=== PATIENT | male | born 1995 | race African-American/Black ===

== ENCOUNTER 2020-10-16 21:53 | Inpatient (IN) | payer SELFPAY ==
--- NOTE | ~2020-10-16 | CT_ITS ---
EXAMINATION: CT abdomen pelvis w con DATE: 10/17/2020 05:24 INDICATION: Abdominal pain. TECHNIQUE: Computed tomography (CT) of the abdomen and pelvis was performed with 100 mL Omnipaque 350 intravenous contrast. Automated exposure control and iterative reconstruction technique were employe d. The dose-length product was 617.64 mGy-cm. COMPARISON: None. FINDINGS: The visualized portions of the lung bases are clear without pneumonia or pleural effusion. The heart size is normal. No pericardial effusion. In right hepatic lobe, there is a 1.9 cm mass with focus of peripheral hyperenhancement, likely a hemangioma. The gallbladder, spleen, pancreas, adrena l glands, and kidneys are normal. There are no dilated loops of bowel. The appendix is normal. There are no pathologically enlarged lymph nodes. There is no free intraperitoneal fluid. There is mild lum bar spondylosis. There is subcutaneous gas in left abdomen anteriorly, likely an injection site. IMPRESSION: 1. No specific etiology for the patient's symptoms. Reviewed, dictated and finalized at location A. ENT WEIGHER
--- NOTE | ~2020-10-16 | US_ITS ---
EXAMINATION: US retroperitoneal duplex ltd DATE: 10/18/2020 08:56 INDICATION: Hypertension. TECHNIQUE: Multiple grayscale, color Doppler, and pulsed Doppler images of the kidneys and renal annalisa tulio were obtained. COMPARISON: CT abdomen and pelvis 10/17/2020 FINDINGS: The aorta peak systolic velocity is 204 cm/s. The right renal artery peak systolic velocity is 111 cm /s in the proximal segment, 113 cm/s in the mid segment, and 70 cm/s in the distal segment. The left renal artery peak systolic velocity is 125 cm/s in the proximal segment, 118 cm/s in the mid segment, and 89 cm/s in the distal segment. IMPRESSION: 1. No Doppler evidence of renal artery stenosis. The CT similarly shows no significant renal artery stenosis. Reviewed, dictated and finalized at location A. IMPRESSION: 1. No Doppler evidence of renal artery stenosis. The CT similarly shows no sig nificant renal artery stenosis.
--- NOTE | ~2020-10-16 | US_ITS ---
EXAMINATION: US venous doppler [facility] DATE: 10/18/2020 08:54 INDICATION: Lower limb edema. TECHNIQUE: Grayscale ultrasound images without and with compression and Doppler ultrasound images of the bilateral lower extremity veins were obtained. COMPARISON: None. FINDINGS: The visualized portions of right common femoral vein, profunda (deep) femoral vein, femoral vein, pop liteal vein, peroneal veins, posterior tibial veins, and greater saphenous vein outflow are patent. The visualized portions of left common femoral vein, profunda femoral vein, femoral vein, popliteal v ein, peroneal veins, posterior tibial veins, and greater saphenous vein outflow are patent. IMPRESSION: 1. No deep venous thrombosis. Reviewed, dictated and finalized at location A.
--- NOTE | ~2020-10-16 | CT_ITS ---
EXAMINATION: CTA chest PE protocol DATE: 10/16/2020 23:26 INDICATION: Elevated troponin. Chest pain. TECHNIQUE: Computed tomography (CT) of the chest was performed with 100 cc Omnipaque 350 intravenous contrast. The dose-length product was 535.00 mGy-cm. Automated exposure control and iterative reconst ruction technique were employed. COMPARISON: None FINDINGS: Mild cardiomegaly. There are filling defects in left upper lobe segmental pulmonary arterie s, consistent with pulmonary embolism. There is anterior mediastinal soft tissue. No Evidence for aor tic aneurysm or dissection. There is gynecomastia. Upper abdomen is unremarkable. There are groundgla ss opacities of the left upper lobe, consistent with pneumonia. No endobronchial lesions. IMPRESSION: 1. Pulmonary embolism involving segmental pulmonary arteries of the right upper lobe. 2: Left upper lobe pneumonia. 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 Other etiologies such as lymphoma or less favored. 4: Cardiomegaly with left ventricular hypertrophy. Reviewed, dictated and finalized at location A. NISTRATIVE LIAISON IMPRESSION: 1. Pulmonary embolism involving segmental pulmonary arteries of the right upper lobe. 2: Left upper lobe pneumonia. 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 Oth er etiologies such as lymphoma or less favored. 4: Cardiomegaly with left ventricular hypertrophy.
--- NOTE | ~2020-10-16 | MR_ITS ---
EXAMINATION: MR brain/brain stem wo/w con DATE: 10/18/2020 09:35 INDICATION: Headache. TECHNIQUE: Magnetic resonance imaging (MRI) of the brain and brainstem was performed without and with 15 mL MultiHance intravenous contrast. Sequences included sagittal and axial T1-weighted FSE, axial diffusion-weighted FS EPI, axial T2*-weighted GRE, axial T2-weighted FLAIR Propeller, and axial T2-we ighted Propeller. Postcontrast sequences included axial and coronal T1-weighted FSE. Apparent diffusi on coefficient (ADC) maps were created. COMPARISON: Head CT 10/17/2020 FINDINGS: There is a mild distribution of increased T2-weighted signal intensity in the cerebral whit e matter with a posterior predominance. There is no intracranial hemorrhage, acute infarction, or abn ormal intracranial mass lesion. The ventricles are normal in size. The paranasal sinuses are clear. T he orbits are normal. The mastoid air cells are normal. IMPRESSION: 1. Mild white matter disease with a posterior predominance, likely acute hypertensive encephalopathy. Reviewed, dictated and finalized at location A. IMPRESSION: 1. Mild white matter disease with a posterior predominance, likely acute hypert ensive encephalopathy.
--- NOTE | ~2020-10-16 | XR_ITS ---
EXAMINATION: XR chest 1V portable 10/16/2020 22:20 INDICATION: Chest pain PROCEDURE: AP portable chest COMPARISON: No prior studies for comparison. FINDINGS: The lungs are clear. The cardiomediastinal silhouette is within normal limits. There are no pleural effusions. There is no pneumothorax suspected. IMPRESSION: 1: NO ACUTE CARDIOPULMONARY DISEASE. Reviewed, dictated and finalized at location A. AR PATHOLOGIST
--- NOTE | ~2020-10-16 | CT_ITS ---
EXAMINATION: CT BRAIN W/O DATE: 10/17/2020 18:21 INDICATION: Headache. Nausea and vomiting TECHNIQUE: Computed tomography (CT) of the head was performed without intravenous contrast. The dose- length product was 681.00 mGy-cm. The mA was adjusted according to patient size. Iterative reconstruc tion technique was employed. COMPARISON: No prior studies for comparison. FINDINGS: Normal brain parenchymal volume for age. Normal vieyra-white differentiation. No acute intrac ranial hemorrhage, infarction, mass or mass effect. Nonspecific periventricular white matter changes are noted. No ventriculomegaly or midline shift. Midline sagittal images demonstrate a normal corpus callosum, c raniovertebral junction and sella turcica. Basilar cisterns are patent. Paranasal sinuses and mastoids are pneumatized. No depressed skull fractures. IMPRESSION: 1. No acute intracranial abnormality. 2: Nonspecific periventricular white matter changes, atypical for age. Consider etiologies such as m ultiple sclerosis and progressive multifocal leukoencephalopathy. Consider follow-up MRI examination. Reviewed, dictated and finalized at location A. CTOR RADIO IMPRESSION: 1. No acute intracranial abnormality. 2: Nonspecific periventricular white matter changes, atypical for age. Conside r etiologies such as multiple sclerosis and progressive multifocal leukoencepha lopathy. Consider follow-up MRI examination.
[2020-10-16 21:57] VITALS: BP 200/131; PULSE 94; RESP 16; TEMP 36.3; O2SAT 99
--- NOTE | 2020-10-16 22:16 | ECG_ITS ---
Measurements Intervals [place] Rate: 72 P: 135 OK: 163 QRS: 32 QRSD: 86 T: 265 QT: 389 QTc: 426 Interpretive Statements ECTOPIC ATRIAL RHYTHM LEFT ATRIAL ENLARGEMENT ST ELEVATION IN ANTEROSEPTAL LEADS- PROBABLY EARLY REPOLARIZATION BORDERLINE ST-T WAVE ABNORMALITY- INF/HIGH LAT LEADS ABNORMAL ECG Electronically Signed On 10-17-2020 7:20:02 BELT MEASURER by Yan Call D.O.
[2020-10-16 22:26] LABS: Basophils Percent Auto 0.4 % (0.2-1.2); Eosinophils Percent Auto 0.3 % (0-4.4); Hematocrit 43.8 % (42.0-52.0); Hemoglobin 15.2 g/dL (14.0-18.0); Immature Granulocyte Absolute 0.03 K/mm3 (0.00-0.031); Immature Granulocyte Percent A 0.3 % (0-0.5); Lymphocytes Absolute Auto 1.23 K/mm3 (0.9-3.2); Mean Corpuscular HGB Conc 34.7 g/dl (32-36); Mean Corpuscular Hemoglobin 26.8 pg (26-34); Mean Corpuscular Volume 77.1 fl (80-100); Mean Platelet Volume 12.2 fl (7.4-10.4); Monocytes Absolute Auto 0.5 K/mm3 (0.1-0.6); Neutrophils Absolute Auto 8.4 K/mm3 (1.3-6.7); Platelet Count Result 251 k/mm3 (150-375); Red Blood Count 5.68 M/mm3 (4.6-6.20); Red Cell Distribution Width 13.9 % (11.5-14.5); White Blood Count 10.2 K/mm3 (4.5-10.0)
[2020-10-16] MEDS: PROCHLORPERAZINE EDISYLATE 10 MG/2 ML VIAL IV PUSH (22:33)
[2020-10-16] MEDS: SODIUM CHLORIDE 0.9% IV 1,000 ML 999 ML IV CONT ×2 (22:33)
[2020-10-16 22:38] VITALS: BP 207/141; PULSE 67; RESP 12; O2SAT 100
[2020-10-16 22:38] LABS: Alanine Aminotransferase 19 U/L (4-50); Albumin Level 4.7 g/dL (3.5-5.1); Alkaline Phosphatase 102 U/L (38-126); Anion Gap 8 mmol/L (8-16); Aspartate Amino Transferase 23 U/L (17-59); Bilirubin,Total 0.9 mg/dL (0.2-1.3); Blood Urea Nitrogen 15 mg/dL (9-20); Calcium 9.8 mg/dL (8.4-10.2); Carbon Dioxide 29 mmol/L (22-30); Chloride 104 mmol/L (98-107); Estimated CRCL calculation 84 ml/min; Estimated Glomerular Filt Rate > 60; Glucose 99 mg/dL (75-110); Lipase 170 U/L (23-300); Potassium 3.9 mmol/L (3.4-5.0); Sodium 141 mmol/L (137-145)
[2020-10-16 22:56] LABS: Troponin I 0.039 ng/mL (0.000-0.034)
[2020-10-16 23:11] LABS: Add Urine Microscopic? YES; Appearance Urine Clear (Clear); Bacteria Urine Trace /hpf; Bilirubin Urine Negative (Negative); Blood Urine Negative (Negative); Color Urine Yellow (Yellow); Glucose Urine UA 1+ mg/dL (Negative); Ketones Urine Trace mg/dL (Negative); Leukocyte Esterase Ur Negative LEU/UL (Negative); Mucus Urine Rare /lpf; Nitrate Urine Negative (Negative); Protein Urine 3+ mg/dL (Negative); RBC Urine 0-2 /hpf (0-2); Specific Grav Ur 1.015 (1.001-1.035); Urobilinogen Urine Negative mg/dL (<2.0)
[2020-10-16 23:28] VITALS: BP 204/124; PULSE 112; RESP 15; O2SAT 100
[2020-10-16 23:43] VITALS: PULSE 100; RESP 19; O2SAT 100
[2020-10-16 23:45] VITALS: PULSE 115; RESP 19; O2SAT 99
[2020-10-16 23:46] VITALS: BP 178/115; PULSE 98; RESP 15; TEMP 37; O2SAT 100
[2020-10-17] VITALS (33 sets, daily range): BP systolic 172–206; BP diastolic 100–130; PULSE 89–127; RESP 12–23; TEMP 36.6–37.1; O2SAT 98–100; BMI 25.9
--- NOTE | 2020-10-17 00:27 | ED.GENADULT ---
HPI - General Adult General Chief complaint: Nausea/Vomiting/Diarrhea Stated complaint: n/v Time Seen by Provider: 10/16/20 21:57 History of Present Illness HPI narrative: Patient is a 25-year-old gentleman who presents the emergency department with chief complaint of nausea and vomiting. The patient reports that he ate some [employer]aco [employer]asi this morning that did not quite taste right patient states that afterwards he started having nausea and vomiting the patient also reports that he has had headache some chest discomfort and some shortness of breath that developed afterwards as well. The patient denies fever denies Covid exposure states that his chest felt very uncomfortable while all this has been going on. 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 Patient reports no prior history of clotting disorder. Related Data Home Medications Medication Instructions Recorded Confirmed No Home Medications 10/16/20 Allergies Allergy/AdvReac Type Severity Reaction Status Date / Time No Known Allergies Allergy Verified 10/16/20 22:14 Review of Systems Review of Systems: Narrative: A 10 system review of systems was completed on the patient and is negative except for what is stated in the HPI. Nursing and ancillary documentation was reviewed. 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 HEAD: Normocephalic, atraumatic. EYES: PERRLA and EOMI. ENT: Nares clear, no rhinorrhea or epistaxis. Mucous membranes moist. NECK: Supple. CHEST: Clear to auscultation. No respiratory distress. HEART: Regular rate and rhythm. No murmur heard. Normal peripheral pulses. ABDOMEN: Soft, nontender, nondistended, normal active bowel sounds. EXTREMITIES: Normal range of motion. No edema. SKIN: Warm, dry, no rash. NEURO: No focal deficits. Alert and oriented x3. PSYCH: Normal mood and affect. 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 A COVID-19 test was sent the patient was given 1 mg/kg of Lovenox and the patient will be admitted to the hospitalist service blood cultures were also obtained the patient was given Rocephin and Zithromax to cover for community-acquired pneumonia as well. Patient's headache resolved after receiving IV antiemetics and Benadryl the patient's nausea is also improved and he is no longer having vomiting. Vital Signs Vital signs: Vital Signs Temperature 36.3 C L 10/16/20 21:57 Pulse Rate 94 10/16/20 21:57 Respiratory Rate 16 10/16/20 21:57 Blood Pressure 200/131 H 10/16/20 21:57 Pulse Oximetry 99 10/16/20 21:57 Temperature 36.3 C L 10/16/20 21:57 Pulse Rate 112 H 10/16/20 23:28 Respiratory Rate 15 10/16/20 23:28 Blood Pressure 204/124 H 10/16/20 23:28 Pulse Oximetry 100 10/16/20 23:28 Medical Decision Making Vital Signs Vital Signs: Vital Signs Temperature 36.3 C L 10/16/20 21:57 Pulse Rate 94 10/16/20 21:57 Respiratory Rate 16 10/16/20 21:57 Blood Pressure 200/131 H 10/16/20 21:57 Pulse Oximetry 99 10/16/20 21:57 Temperature 36.3 C L 10/16/20 21:57 Pulse Rate 112 H 10/16/20 23:28 Respiratory Rate 15 10/16/20 23:28 Blood Pressure 204/124 H 10/16/20 23:28 Pulse Oximetry 100 10/16/20 23:28 Lab Data Result diagrams: 10/16/20 22:16 10/16/20 22:16 Labs: Lab Results 10/16/20 10/16/20 10/16/20 Range/Units 22:16 22:16 22:16 WBC 10.2 H (4.5-10.0) K/mm3 RBC 5.68 (4.6-6.20) M/mm3 Hgb
[2020-10-17 01:11] LABS: Troponin I 0.052 ng/mL (0.000-0.034)
--- NOTE | 2020-10-17 01:21 | PC.NURSE ---
Patient reports he feels jittery. ANKIT Fry notified. Per ANKIT Fry, give 25mg Benadryl IVP.
[2020-10-17] MEDS: ENOXAPARIN 100 MG/ML SYRINGE SUB-Q ×3 (01:26→21:18)
[2020-10-17] MEDS: diphenhydrAMINE HCl INJ 50 MG/ML VIAL 25 MG IV PUSH (01:29)
--- NOTE | 2020-10-17 02:06 | PC.NURSE ---
ANKIT Fry informed of patient's current blood pressure of 188/130. Per ANKIT Fry, no further intervention needed at this time.
[2020-10-17] MEDS: SODIUM CHLORIDE 0.9% IV 1,000 ML 125 ML IV CONT ×3 (03:11→22:58)
--- NOTE | 2020-10-17 03:18 | PM.IMHP ---
H&P: HPI History of Present Illness Date/Time: 10/17/20 03:18 Chief Complaint: Nausea and vomiting, abd pain Narrative: This is a pleasant 25 year old male who is known to be healthy and presented to the hospital with a complaint of nausea and vomiting that started a few hours after he ate Taco [employer]asi. Associated symptoms included vague diffuse abdominal pain, shortness of breath, and headache. The patient denies any fever, chills, diarrhea, rectal bleeding, dysuria, hematuria, or hematemesis. 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 He does report chest pain today. He was evaluated in the ER tonight and found to incidentally have a pulmonary embolism. On my encounter with the patient he continues to have elevated blood pressure and complaining of diffuse abdominal pain. No other complaints. Review of Systems Review of Systems: All systems reviewed & are unremarkable except as noted in HPI and below PMFSH Family History Family History Mother Sickle cell anemia Grandparent Diabetes mellitus Social History Social History Smoking status: Never smoker Alcohol intake: never Substance use: never Substance use type: does not use Spiritual care concerns: No Comments Past medical and surgical histories are reviewed and unremarkable. Meds Home Medications and Allergies Home Medications Medication Instructions Recorded Confirmed Type amlodipine [Norvasc] 10 mg PO QAM #30 tablet 10/20/20 Rx apixaban [Eliquis] 5 mg PO Q12HR #60 tablet 10/20/20 Rx apixaban [Eliquis] 10 mg PO Q12HR #28 tablet 10/20/20 Rx lisinopril 20 mg PO QAM #30 tablet 10/20/20 Rx Allergies Allergy/AdvReac Type Severity Reaction Status Date / Time No Known Allergies Allergy Verified 10/16/20 22:14 Vital Signs Vital Signs - 24 hr 10/16/20 21:57 10/16/20 22:38 10/16/20 23:28 Temperature 36.3 C L Pulse Rate 94 67 112 H Respiratory Rate 16 12 15 Blood Pressure 200/131 H 207/141 H 204/124 H Pulse Oximetry 99 100 100 10/16/20 23:43 10/16/20 23:45 10/16/20 23:46 Temperature 37.0 C Pulse Rate 100 115 H 98 Respiratory Rate 19 19 15 Blood Pressure 178/115 H Pulse Oximetry 100 99 100 10/17/20 00:00 10/17/20 00:01 10/17/20 00:15 Temperature Pulse Rate 96 110 H 91 Respiratory Rate 20 23 H 19 Blood Pressure 185/116 H Pulse Oximetry 100 100 98 10/17/20 00:16 10/17/20 00:33 10/17/20 00:45 Temperature Pulse Rate 121 H 101 H 92 Respiratory Rate 20 14 19 Blood Pressure 194/114 H Pulse Oximetry 100 98 98 10/17/20 01:00 10/17/20 01:15 10/17/20 01:23 Temperature Pulse Rate Respiratory Rate Blood Pressure 186/126 H Pulse Oximetry 98 98 10/17/20 01:37 10/17/20 01:45 10/17/20 01:47 Temperature Pulse Rate 102 H 104 H 106 H Respiratory Rate 17 17 21 H Blood Pressure Pulse Oximetry 10/17/20 02:00 10/17/20 02:01 Temperature Pulse Rate 111 H 113 H Respiratory Rate 19 14 Blood Pressure 188/130 H Pulse Oximetry Exam Const: General: cooperative, alert and awake Nutritional Appearance: well nourished Orientation/consciousness: patient oriented x3 HENMT: Head: normal to inspection General nose exam: Normal external nose present Face and sinus: normal facial exam Mouth: Yes Normal oral and palatal mucosa present and Yes oropharynx normal Eyes: Pupils: Equal, round and reactive pupils present EOM: EOMs intact bilaterally Neck: Neck: supple and no JVD Thyroid: thyroid normal Lymphatic: lymphadenopathy not noted Resp: Effort & Inspection: normal respiratory effort Auscultation: clear to auscultation bilaterally Cardio: Rate: regular rate Rhythm: regular rhythm Heart sounds: no murmurs GI: Inspection: normal to inspection GI Palp: Yes abdominal tenderness (diffuse w/ light palpation++ ), No Guarding due to palpation present (GI) a
[2020-10-17] MEDS: hydrALAZINE HCL 20 MG/ML VIAL 10 MG IV PUSH ×3 (03:20→19:55)
[2020-10-17 03:35] LABS: Basophils Percent Auto 0.4 % (0.2-1.2); Eosinophils Percent Auto 0.4 % (0-4.4); Hematocrit 39.2 % (42.0-52.0); Hemoglobin 13.6 g/dL (14.0-18.0); Immature Granulocyte Absolute 0.04 K/mm3 (0.00-0.031); Immature Granulocyte Percent A 0.4 % (0-0.5); Lymphocytes Absolute Auto 1.58 K/mm3 (0.9-3.2); Lymphocytes Percent Auto 15.9 % (18.3-44.2); Mean Corpuscular HGB Conc 34.7 g/dl (32-36); Mean Corpuscular Hemoglobin 26.7 pg (26-34); Mean Corpuscular Volume 76.9 fl (80-100); Mean Platelet Volume 11.8 fl (7.4-10.4); Monocytes Absolute Auto 0.8 K/mm3 (0.1-0.6); Monocytes Percent Auto 7.9 % (2.6-8.5); Neutrophils Absolute Auto 7.5 K/mm3 (1.3-6.7); Platelet Count Result 222 k/mm3 (150-375); Red Cell Distribution Width 13.8 % (11.5-14.5)
--- NOTE | 2020-10-17 03:45 | PC.NURSE ---
This patient, Morris Peña, was admitted to IMU Room 209-01 10/17/20 AT 0225. Patient/family oriented to hospital policies and general routines including ID bracelet, bed and alarms, visiting hours, pain management, procedures, bathroom and other care routines, personal items, smoking policy, room service/diet, and visiting hours. Information on how to activate the Rapid Response Team has been discussed. Patient/Family are encouraged to report perceived risks to care and to ask questions if they do not understand what they are told or what they should do.
[2020-10-17 03:48] LABS: Anion Gap 4 mmol/L (8-16); Blood Urea Nitrogen 13 mg/dL (9-20); Carbon Dioxide 28 mmol/L (22-30); Chloride 108 mmol/L (98-107); Estimated CRCL calculation 78 ml/min; Estimated Glomerular Filt Rate > 60; Glucose 102 mg/dL (75-110); Magnesium 1.9 mg/dL (1.6-2.3); Potassium 3.7 mmol/L (3.4-5.0); Sodium 140 mmol/L (137-145)
[2020-10-17 04:01] LABS: Troponin I 0.056 ng/mL (0.000-0.034)
[2020-10-17] MEDS: LABETALOL HCL INJ 100 MG/20 ML VIAL 10 MG IV PUSH (04:59)
[2020-10-17] MEDS: LABETALOL HCL INJ 100 MG/20 ML VIAL 20 MG IV PUSH (06:51)
[2020-10-17 07:48] LABS: Troponin I 0.048 ng/mL (0.000-0.034)
[2020-10-17] MEDS: ACETAMINOPHEN 325 MG TABLET 650 MG PO (14:53)
[2020-10-17] MEDS: amLODIPine BESYLATE 5 MG TABLET PO (14:53)
[2020-10-17] MEDS: ONDANSETRON INJ 4 MG/2 ML VIAL IV PUSH ×2 (14:54→20:32)
--- NOTE | 2020-10-17 16:20 | PM.IMPN ---
Progress Note: A&P Assessment and Plan (1) Nausea & vomiting: Qualifiers: Vomiting Intractability: non-intractable Vomiting type: unspecified Qualified Code(s): R11.2 - Nausea with vomiting, unspecified Code(s): R11.2 - Nausea with vomiting, unspecified Status: Acute (2) Pulmonary emboli: Qualifiers: Pulmonary embolism type: single subsegmental (without acute cor pulmonale) Qualified Code(s): I26.93 - Single subsegmental pulmonary embolism without acute cor pulmonale Code(s): I26.99 - Other pulmonary embolism without acute cor pulmonale Status: Acute (3) Abdominal pain: Code(s): R10.9 - Unspecified abdominal pain Status: Acute Assessment and Plan: This is a pleasant 25 year old male who is known to be healthy and presented to the hospital with a complaint of nausea and vomiting that started a few hours after he ate Taco Abbasi. Associated symptoms included vague diffuse abdominal pain, shortness of breath, and headache. The patient denies any fever, chills, diarrhea, rectal bleeding, dysuria, hematuria, or hematemesis. 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 He does report chest pain today. He was evaluated in the ER [facility] and found to incidentally have a pulmonary embolism. Patient is a 25-year-old gentleman who presents the emergency department with chief complaint of nausea and vomiting. The patient reports that he ate some Taco Abbasi this morning that did not quite taste right patient states that afterwards he started having nausea and vomiting the patient also reports that he has had headache some chest discomfort and some shortness of breath that developed afterwards as well. The patient denies fever denies Covid exposure states that his chest felt very uncomfortable while all this has been going on. 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 Patient reports no prior history of clotting disorder. # Acute segmental RUL PE: on lovenox. # left upper lobe pneuonia: treated as CAP. suspected COVID. test sent. on azithromycin and ceftraixone. will continue same. wbc count mildly elevated. 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 # HTN: uncontrolled. add amlod 5 mg po daily. prn hydralazine. # nausea/vomting: CT abdomen negative. will get CT head particularly with his ongoig headache. # headache: CT head as above. # elevated troponin: mild. flat. not indicative of ACS # DVT proph: lovenox Subjective Date/time seen: 10/17/20 16:20 Interval history: feels better, mild cough, some sob, no nausea, would like to try something to eat, started vomtiing all of sudden, ct with pneuoina nad pe noted Review of Systems Constitutional: Constitutional: Denies body ache(s), Denies fatigue, Denies lethargy and Denies weakness Eyes: Eyes: Denies blurry vision and Denies photophobia ENT: Denies Normal hearing present and Denies tinnitus Cardiovascular: Cardiovascular: Denies chest pain and Denies palpitations Respiratory: Respiratory: Reports cough, Denies dyspnea and Denies dyspnea on exertion Gastrointestinal: Gastrointestinal: Denies abdominal pain, Denies bloating and Denies nausea Genitourinary: Genitourinary: Denies dysuria and Denies urinary frequency Musculoskeletal: Musculoskeletal: Denies arthralgias and Denies joint swelling Integumentary/Breasts: Skin/Breast: Denies dry skin and Denies skin pain Neurologic: Denies headache(s) and Denies numbness Psychiatric: Psychiatric: Denies anxiety and Denies depression Exam Const: General: cooperative, alert and awake Nutritional Appearance: well nourished Orientation/consciousness: patient oriented x3 HENMT: Head: normal to inspection General nose exam: Normal external nose present Face and sinus: normal facial exam Mouth: Yes Normal oral and palatal mucosa present and Yes oropharynx
[2020-10-17 18:54] LABS: SARS-CoV-2 RNA PCR Negative
[2020-10-17] MEDS: MORPHINE SULFATE (*CRX) 4 MG/ML INJ IV PUSH (20:33)
[2020-10-18] VITALS (21 sets, daily range): BP systolic 132–204; BP diastolic 70–138; PULSE 78–159; RESP 12–21; TEMP 36.5–36.9; O2SAT 97–100
[2020-10-18] MEDS: ACETAMINOPHEN 325 MG TABLET 650 MG PO (00:42)
[2020-10-18] MEDS: niCARdipine 20 MG/200 ML 20 MG/200 ML BAG 50 MG IV CONT ×2 (01:09→01:46)
--- NOTE | 2020-10-18 01:15 | PC.NURSE ---
This patient, Morris Peña, was transferred to [ICU 5] on 10/18/20 at 0100 for a nicardipine drip. Personal belongings sent with patient. Report given to [Amalia]. Appropriate documentation sent with patient.
[2020-10-18] MEDS: ONDANSETRON INJ 4 MG/2 ML VIAL IV PUSH (01:58)
[2020-10-18] MEDS: niCARdipine 20 MG/200 ML 20 MG/200 ML BAG 100 MG IV CONT ×2 (04:28→06:51)
[2020-10-18 04:35] LABS: Basophils Absolute Auto 0.1 K/mm3 (0.0-0.1); Basophils Percent Auto 0.5 % (0.2-1.2); Eosinophils Absolute Auto 0.1 K/mm3 (0-0.3); Eosinophils Percent Auto 0.8 % (0-4.4); Hematocrit 39.2 % (42.0-52.0); Hemoglobin 13.5 g/dL (14.0-18.0); Immature Granulocyte Absolute 0.03 K/mm3 (0.00-0.031); Immature Granulocyte Percent A 0.3 % (0-0.5); Lymphocytes Percent Auto 17.9 % (18.3-44.2); Mean Corpuscular HGB Conc 34.4 g/dl (32-36); Mean Corpuscular Hemoglobin 26.5 pg (26-34); Mean Corpuscular Volume 76.9 fl (80-100); Mean Platelet Volume 11.2 fl (7.4-10.4); Monocytes Absolute Auto 0.9 K/mm3 (0.1-0.6); Monocytes Percent Auto 9.2 % (2.6-8.5); Neutrophils Absolute Auto 6.8 K/mm3 (1.3-6.7); Neutrophils Percent Auto 71.3 % (45.5-73.1); Platelet Count Result 216 k/mm3 (150-375); Red Cell Distribution Width 14.1 % (11.5-14.5); White Blood Count 9.5 K/mm3 (4.5-10.0)
[2020-10-18 04:51] LABS: Alanine Aminotransferase 14 U/L (4-50); Albumin Level 4.2 g/dL (3.5-5.1); Alkaline Phosphatase 86 U/L (38-126); Anion Gap 5 mmol/L (8-16); Aspartate Amino Transferase 17 U/L (17-59); Bilirubin,Total 0.8 mg/dL (0.2-1.3); Blood Urea Nitrogen 10 mg/dL (9-20); Calcium 8.9 mg/dL (8.4-10.2); Carbon Dioxide 26 mmol/L (22-30); Chloride 108 mmol/L (98-107); Estimated CRCL calculation 78 ml/min; Estimated Glomerular Filt Rate > 60; Glucose 117 mg/dL (75-110); Potassium 3.5 mmol/L (3.4-5.0); Sodium 139 mmol/L (137-145)
--- NOTE | 2020-10-18 06:38 | PC.NURSE ---
Daylight Savings Time For Daylight Savings Time Ending in the Fall - Clocks are moved back. For Daylight Savings Time Beginning in the Spring - Clocks are moved ahead. For [facility], the time of change occurs at 0200 hrs. Time is taken from the patient observer. This entry on the patient's chart recognizes the change in time reflected during documentation. Example: 2 entries for vital signs may be charted for 0200 hrs.
--- NOTE | 2020-10-18 06:53 | P.PNCROSS_ITS ---
Event Note Event Note Event Note: Transfer Note The patient appears to be having symptomatic HTN as his headache and nausea has been reoccurring when his blood pressure becomes severely elevated. We have given the patient multiple bolus antihypertensive medications and he continues to have poorly controlled HTN. At this time we will transfer the patient to the ICU and initiate IV Cardene drip for blood pressure control w/ goal of 25% reduction overnight. We should consider workup for secondary hypertension in am. I have discussed the case in detail with our Quality Control Projectionist who is in agreement. I will continue to reassess as needed overnight.
--- NOTE | 2020-10-18 08:16 | WPDCNINT ---
Assessment and Plan Assessment and plan (1) Uncontrolled hypertension: Code(s): I10 - Essential (primary) hypertension Status: Acute Assessment and Plan: Difficult to control his blood pressure which is newly diagnosed. He is currently on amlodipine 10 mg. I will add lisinopril 20 mg and hydrochlorothiazide 25 mg. He is currently on nicardipine drip. I will try to wean nicardipine drip if his blood pressure allow us. He is going to have basic secondary hypertension workup. Doppler ultrasound of the renal artery does not show any evidence of stenosis.. I will send aldosterone and renin activity. He may need further workup based on these initial testing. Headache was found negative for any acute intracranial pathology. It did show some white matter changes suggestive of possible multiple sclerosis. MRI of the brain with and without contrast was done today. It showed mild white matter disease with posterior predominance likely acute hypertensive encephalopathy. Imaging finding is not suggestive of PRESS syndrome. Echo has been ordered as well which is pending. Continue to monitor him on telemetry. Serial EKG. (2) Pulmonary emboli: Qualifiers: Pulmonary embolism type: single subsegmental (without acute cor pulmonale) Qualified Code(s): I26.93 - Single subsegmental pulmonary embolism without acute cor pulmonale Code(s): I26.99 - Other pulmonary embolism without acute cor pulmonale Status: Acute Assessment and Plan: He is currently on Lovenox. He can be transitioned to Eliquis or Xarelto at the time of discharge. 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 (3) Pneumonia: Qualifiers: Laterality: unspecified laterality Lung location: upper lobe of lung Pneumonia type: due to unspecified organism Qualified Code(s): J18.9 - Pneumonia, unspecified organism Code(s): J18.9 - Pneumonia, unspecified organism Status: Acute Assessment and Plan: He has minimal ground-glass opacity in the left upper lobe which is not very impressive. It does not look like a consolidation or infiltrate.. He does not have any significant respiratory symptoms with no significant cough. He does get short of breath occasionally. Follow cultures. Will check procalcitonin level in the a.m.. Deescalate antibiotics based on further clinical data with culture and procalcitonin level. I will switch azithromycin to p.o.. I will continue ceftriaxone. May potentially stop antibiotic tomorrow if procalcitonin level is within normal range. (4) Nausea & vomiting: Qualifiers: Vomiting Intractability: non-intractable Vomiting type: unspecified Qualified Code(s): R11.2 - Nausea with vomiting, unspecified Code(s): R11.2 - Nausea with vomiting, unspecified Status: Acute Assessment and Plan: For nausea and vomiting. His symptom of nausea and vomiting started once his blood pressure become uncontrolled and his systolic is in 200s. (5) Elevated troponin: Code(s): R77.8 - Other specified abnormalities of plasma proteins Status: Acute Assessment and Plan: Likely demand ischemia. Echo will be performed. If we continue to have issue controlling his blood pressure then may consider cardiology consult further help with titration of medications. Additional Plan DVT prophylaxis with systemic anticoagulation with Lovenox GI prophylaxis not indicated Code status full code Prognosis fair Can potentially be downgraded tomorrow if he is off nicardipine drip. Critical care time spent 36 minutes Due to a high probability of clinically significant, life threatening deterioration, the patient required my highest level of preparedness to intervene emergently and I personally spent this critical care time directly and personally managing the patient. This critical care time included obtaining a history; e
[2020-10-18] MEDS: hydroCHLOROthiazide 25 MG TABLET PO (08:30)
[2020-10-18] MEDS: lisinopriL 20 MG TABLET PO (08:30)
[2020-10-18] MEDS: amLODIPine BESYLATE 5 MG TABLET 10 MG PO (08:30)
[2020-10-18] MEDS: ENOXAPARIN 100 MG/ML SYRINGE SUB-Q ×2 (08:31→19:51)
[2020-10-18 08:40] LABS: Hematocrit 38.8 % (42.0-52.0); Hemoglobin 13.4 g/dL (14.0-18.0); Mean Corpuscular HGB Conc 34.5 g/dl (32-36); Mean Corpuscular Hemoglobin 26.8 pg (26-34); Mean Corpuscular Volume 77.6 fl (80-100); Mean Platelet Volume 11.3 fl (7.4-10.4); Platelet Count Result 217 k/mm3 (150-375); Red Cell Distribution Width 14.2 % (11.5-14.5); White Blood Count 8.9 K/mm3 (4.5-10.0)
[2020-10-18 08:52] LABS: Anion Gap 5 mmol/L (8-16); Blood Urea Nitrogen 10 mg/dL (9-20); Calcium 8.9 mg/dL (8.4-10.2); Carbon Dioxide 26 mmol/L (22-30); Chloride 109 mmol/L (98-107); Estimated CRCL calculation 78 ml/min; Estimated Glomerular Filt Rate > 60; Glucose 105 mg/dL (75-110); Potassium 3.5 mmol/L (3.4-5.0); Sodium 140 mmol/L (137-145)
--- NOTE | 2020-10-18 09:04 | PM.IMPN ---
Progress Note: A&P Assessment and Plan (1) Uncontrolled hypertension: Code(s): I10 - Essential (primary) hypertension Status: Acute Assessment and Plan: nicardipine --> amlodipine 10/18 r/o secondary causes: pheo, tracy, cortisol no KATHRIN by u/s or ct (2) Pulmonary emboli: Qualifiers: Pulmonary embolism type: single subsegmental (without acute cor pulmonale) Qualified Code(s): I26.93 - Single subsegmental pulmonary embolism without acute cor pulmonale Code(s): I26.99 - Other pulmonary embolism without acute cor pulmonale Status: Acute Assessment and Plan: enoxaparin (3) Pneumonia: Qualifiers: Laterality: unspecified laterality Lung location: upper lobe of lung Pneumonia type: due to unspecified organism Qualified Code(s): J18.9 - Pneumonia, unspecified organism Code(s): J18.9 - Pneumonia, unspecified organism Status: Acute Assessment and Plan: zithromax and rocephin (4) Abdominal pain: Qualifiers: Abdominal location: generalized Qualified Code(s): R10.84 - Generalized abdominal pain Code(s): R10.9 - Unspecified abdominal pain Status: Acute Assessment and Plan: Resolved. Related to hypertensive crisis? (5) Nausea & vomiting: Qualifiers: Vomiting Intractability: non-intractable Vomiting type: unspecified Qualified Code(s): R11.2 - Nausea with vomiting, unspecified Code(s): R11.2 - Nausea with vomiting, unspecified Status: Acute Assessment and Plan: Resolved. Related to hypertensive encephelopathy? (6) Abnormal CT of brain: Code(s): R90.89 - Other abnormal findings on diagnostic imaging of central nervous system Status: Acute Assessment and Plan: MRI pending Subjective Date/time seen: 10/18/20 09:04 Interval history: 10/18: Only c/o is headache. Tolerated breakfast. Review of Systems Review of Systems: All systems reviewed & are unremarkable except as noted in HPI and below Exam Narrative: Exam Narrative: HEENT: PERRL, sclerae nonicteric, pharyngeal mucosa pink and intact NECK: No JVD CHEST: Clear to auscultation. Normal effort. HEART: NL S1/S2, regular, no murmur ABDOMEN: BS+, soft, nontender, no mass, no bruits EXTREMITIES: No cyanosis, edema, or clubbing NEUROLOGIC: CN intact and symmetric to inspection. MUSCULOSKELETAL: Tone and strength symmetric. PSYCH: Alert. Oriented to person, place, and time. Objective Data Vital Signs Vital Signs: Vital Signs - 24 hr 10/17/20 09:16 10/17/20 10:00 10/17/20 11:46 Temperature 98.2 F Pulse Rate 107 H 104 H Respiratory Rate 14 Blood Pressure 188/121 H Pulse Oximetry 98 99 10/17/20 12:00 10/17/20 14:00 10/17/20 16:00 Temperature 98.4 F Pulse Rate 104 H 90 103 H Respiratory Rate 14 12 Blood Pressure 179/101 H Pulse Oximetry 99 98 10/17/20 18:00 10/17/20 20:00 10/17/20 21:15 Temperature 98 F Pulse Rate 108 H 105 H Respiratory Rate 16 Blood Pressure 192/122 H 175/105 H Pulse Oximetry 100 10/17/20 22:00 10/17/20 23:40 10/17/20 23:45 Temperature 97.8 F Pulse Rate 127 H 98 Respiratory Rate 16 Blood Pressure 198/100 H 178/111 H Pulse Oximetry 100 10/18/20 00:00 10/18/20 01:07 10/18/20 01:09 Temperature 98.4 F Pulse Rate 78 96 80 Respiratory Rate 15 Blood Pressure 204/138 H 204/138 H Pulse Oximetry 98 100 10/18/20 01:28 10/18/20 01:46 10/18/20 01:52 Temperature Pulse Rate 94 Respiratory Rate Blood Pressure 193/110 H 194/110 H 192/106 H Pulse Oximetry 10/18/20 03:00 10/18/20 03:15 10/18/20 04:00 Temperature 98.5 F Pulse Rate 159 H 115 H 114 H Respiratory Rate 12 21 H Blood Pressure 185/91 H 163/91 H Pulse Oximetry 99 98 10/18/20 04:28 10/18/20 06:00 Temperature Pulse Rate 115 H Respiratory Rate 18 Blood Pressure 170/84 H 173/84 H Pulse Oximetry 98 Intake/Output Intake/Output: Intake &
[2020-10-18] MEDS: SODIUM CHLORIDE 0.9% IV 1,000 ML 125 ML IV CONT ×2 (12:20→21:48)
[2020-10-18] MEDS: AZITHROMYCIN 250 MG TABLET 500 MG PO (21:48)
[2020-10-19] VITALS (16 sets, daily range): BP systolic 129–187; BP diastolic 87–112; PULSE 73–104; RESP 14–19; TEMP 35.7–36.7; O2SAT 97–100
--- NOTE | 2020-10-19 | ECHO_ITS ---
Patient Info Name: Morris Peña Age: 25 years : 1995 Gender: Male Ht: 69 in Wt: 175 lbs BSA: 1.98 m2 HR: 81 bpm BP: 145 / 107 mmHg Heart Rhythm: Sinus Rhythm Technical Quality: Good Exam Date: 10/19/2020 8:17 AM Exam Location: [facility] Card Pulmonary Patient Status: Inpatient Admit Date: 10/18/2020 Staff Ordering Physician: Jose Bowles MD Eyeglass Inspector: Jaime Vasques, JAKOB, RT Attending Provider: Jose Bowles MD Exam Type: CA echo doppler color flow Study Info Indications I26.99 - Other pulmonary embolism without acute cor pulmonale Complete two-dimensional, color flow and Doppler transthoracic echocardiogram is performed. Strain analysis performed. Summary 1. Complete two-dimensional, color flow and Doppler transthoracic echocardiogram is performed. 2. Left ventricular systolic function is normal, estimated at 55%. False tendon noted in LV. 3. There is moderately increased left ventricular wall thickness. 4. The left ventricular diastolic function is normal. 5. Global longitudinal strain is mildly elevated at -12 %. 6. There is trace mitral valve regurgitation. 7. Unable to estimate PA systolic pressure due to poor spectral resolution of tricuspid regurgitant jet velocity. Left Ventricle Left ventricular chamber dimension is normal. Left ventricular systolic function is normal, estimated at 55%. False tendon noted in LV. There is moderately increased left ventricular wall thickness. The left ventricular diastolic function is normal. Global longitudinal strain is mildly elevated at -12 %. Right Ventricle Right ventricular chamber dimension is normal. Right ventricular systolic function is normal. Left Atria Left atrial chamber dimension is normal. Right Atria Right atrial chamber dimension is normal. Aortic Valve The aortic valve is probable trileaflet. There is no aortic valve stenosis. There is no aortic valve regurgitation. Pulmonic Valve The pulmonic valve is not well visualized. There is trace pulmonic regurgitation. Mitral Valve The mitral valve has thickened leaflets. There is trace mitral valve regurgitation. Tricuspid Valve The tricuspid valve leaflets are normal. There is trace tricuspid valve regurgitation. Unable to estimate PA systolic pressure due to poor spectral resolution of tricuspid regurgitant jet velocity. Pericardium/Pleural The pericardium appears normal. There is no pericardial effusion. Inferior Vena Cava Normal inferior vena cava with <50% collapse upon inspiration consistent with elevated right atrial pressure, 10 mmHg. Aorta The aortic root size at the sinus of Valsalva is normal. Left Ventricular Outflow Tract Name Value Normal LVOT 2D LVOT Diameter 2.2 cm LVOT Doppler LVOT Peak Gradient 3 mmHg LVOT Mean Gradient 2 mmHg LVOT VTI 17 cm LVOT VTI/AV VTI Ratio 0.9 LVOT Stroke Volume 66 ml LVOT CO 6.5 l/min LVOT CI
[2020-10-19] MEDS: amLODIPine BESYLATE 5 MG TABLET 10 MG PO (08:06)
[2020-10-19] MEDS: lisinopriL 20 MG TABLET PO (08:06)
[2020-10-19] MEDS: hydroCHLOROthiazide 25 MG TABLET PO (08:06)
[2020-10-19] MEDS: ENOXAPARIN 100 MG/ML SYRINGE SUB-Q ×2 (08:07→21:06)
[2020-10-19 08:09] LABS: Hematocrit 39.5 % (42.0-52.0); Hemoglobin 13.7 g/dL (14.0-18.0); Mean Corpuscular HGB Conc 34.7 g/dl (32-36); Mean Corpuscular Volume 77.8 fl (80-100); Mean Platelet Volume 10.9 fl (7.4-10.4); Platelet Count Result 201 k/mm3 (150-375); Red Blood Count 5.08 M/mm3 (4.6-6.20); Red Cell Distribution Width 14.1 % (11.5-14.5); White Blood Count 6.8 K/mm3 (4.5-10.0)
[2020-10-19 08:19] LABS: Anion Gap 6 mmol/L (8-16); Blood Urea Nitrogen 11 mg/dL (9-20); Calcium 9.1 mg/dL (8.4-10.2); Carbon Dioxide 27 mmol/L (22-30); Chloride 106 mmol/L (98-107); Estimated CRCL calculation 89 ml/min; Estimated Glomerular Filt Rate > 60; Glucose 88 mg/dL (75-110); Potassium 3.7 mmol/L (3.4-5.0); Sodium 139 mmol/L (137-145)
--- NOTE | 2020-10-19 09:36 | WPDINTPN ---
Progress Note: A&P Assessment and Plan (1) Uncontrolled hypertension: Code(s): I10 - Essential (primary) hypertension Status: Acute Assessment and Plan: Difficult to control his blood pressure which is newly diagnosed. -continue amlodipine 10 mg, lisinopril 20 mg and hydrochlorothiazide 25 mg -will have Cardiology evaluate patient to manage blood pressure when he moves out of the ICU. -off nicardipine since 10/18 morning -workup for secondary hypertension and progress: Renal arterial Dopplers negative for renal artery stenosis. -aldosterone and renin activity pending. Head CT was negative for negative for any acute intracranial pathology. It did show some white matter changes suggestive of possible multiple sclerosis. MRI of the brain with and without contrast was done today. It showed mild white matter disease with posterior predominance likely acute hypertensive encephalopathy. I Echo has been ordered as well which is pending. Continue to monitor him on telemetry. Serial EKG. (2) Pulmonary emboli: Qualifiers: Pulmonary embolism type: single subsegmental (without acute cor pulmonale) Qualified Code(s): I26.93 - Single subsegmental pulmonary embolism without acute cor pulmonale Code(s): I26.99 - Other pulmonary embolism without acute cor pulmonale Status: Acute Assessment and Plan: CTA chest on admission showed pulmonary embolism involving segmental pulmonary arteries of the right upper lobe. Left upper lobe pneumonia, anterior mediastinal soft tissue which may represent thymic hyperplasia, cardiomegaly with left ventricular hypertrophy. -continue therapeutic Lovenox. He can be transitioned to Eliquis or Xarelto at the time of discharge. 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 (3) Pneumonia: Qualifiers: Laterality: unspecified laterality Lung location: upper lobe of lung Pneumonia type: due to unspecified organism Qualified Code(s): J18.9 - Pneumonia, unspecified organism Code(s): J18.9 - Pneumonia, unspecified organism Status: Acute Assessment and Plan: He has minimal ground-glass opacity in the left upper lobe which is not very impressive. It does not look like a consolidation or infiltrate.. He does not have any significant respiratory symptoms with no significant cough. He does get short of breath occasionally. Follow cultures. Will check procalcitonin level in the a.m.. Deescalate antibiotics based on further clinical data with culture and procalcitonin level. I will switch azithromycin to p.o.. I will continue ceftriaxone. May potentially stop antibiotic tomorrow if procalcitonin level is within normal range. -SARS-CoV-2 PCR negative (4) Nausea & vomiting: Qualifiers: Vomiting Intractability: non-intractable Vomiting type: unspecified Qualified Code(s): R11.2 - Nausea with vomiting, unspecified Code(s): R11.2 - Nausea with vomiting, unspecified Status: Acute Assessment and Plan: RESOLVED For nausea and vomiting. His symptom of nausea and vomiting started once his blood pressure become uncontrolled and his systolic is in 200s. (5) Elevated troponin: Code(s): R77.8 - Other specified abnormalities of plasma proteins Status: Acute Assessment and Plan: Likely demand ischemia. Echo will be performed. If we continue to have issue controlling his blood pressure then may consider cardiology consult further help with titration of medications. Additional Plan DVT prophylaxis with systemic anticoagulation with Lovenox GI prophylaxis not indicated Code status full code Discussed with patient updated with his condition and plan of care. I answered all questions Code status: Full code Critical care time spent: 34 minutes. This dictation may have been done utilizing a voice recognition system. Attempts have been made to correct
--- NOTE | 2020-10-19 14:51 | PM.IMPN ---
Progress Note: A&P Assessment and Plan (1) Uncontrolled hypertension: Code(s): I10 - Essential (primary) hypertension Status: Acute Assessment and Plan: Bp is 156/87, pt is off nicardipine drip. Pt is stable to discharge to the medical floor. (2) Pulmonary emboli: Qualifiers: Pulmonary embolism type: single subsegmental (without acute cor pulmonale) Qualified Code(s): I26.93 - Single subsegmental pulmonary embolism without acute cor pulmonale Code(s): I26.99 - Other pulmonary embolism without acute cor pulmonale Status: Acute Assessment and Plan: Enoxaparin BID (3) Pneumonia: Qualifiers: Laterality: unspecified laterality Lung location: upper lobe of lung Pneumonia type: due to unspecified organism Qualified Code(s): J18.9 - Pneumonia, unspecified organism Code(s): J18.9 - Pneumonia, unspecified organism Status: Acute Assessment and Plan: Pt to continue on zithromax and rocephin (4) Abdominal pain: Qualifiers: Abdominal location: generalized Qualified Code(s): R10.84 - Generalized abdominal pain Code(s): R10.9 - Unspecified abdominal pain Status: Acute Assessment and Plan: Resolved. Related to hypertensive crisis (5) Nausea & vomiting: Qualifiers: Vomiting Intractability: non-intractable Vomiting type: unspecified Qualified Code(s): R11.2 - Nausea with vomiting, unspecified Code(s): R11.2 - Nausea with vomiting, unspecified Status: Acute Assessment and Plan: Resolved. Related to hypertensive crisis (6) Abnormal CT of brain: Code(s): R90.89 - Other abnormal findings on diagnostic imaging of central nervous system Status: Acute Assessment and Plan: MRI brain - 1. Mild white matter disease with a posterior predominance, likely acute hypertensive encephalopathy. Subjective Date/time seen: 10/19/20 14:51 Interval history: 25 year old male who is known to be healthy and presented to the hospital with a complaint of nausea and vomiting that started a few hours after he ate [employer]. No complaints of chest pain or sob. Bp is 156/87. Review of Systems Review of Systems: All systems reviewed & are unremarkable except as noted in HPI and below Exam Narrative: Exam Narrative: Pleasant man CHEST: Clear to auscultation. HEART: NL S1/S2 ABDOMEN: BS+, soft, nontender, no mass, no bruits EXTREMITIES: No cyanosis, edema, or clubbing NEUROLOGIC: CN intact and symmetric to inspection. MUSCULOSKELETAL: Tone and strength symmetric. PSYCH: Alert. Oriented to person, place, and time. Objective Data Vital Signs Vital Signs: Vital Signs - 24 hr 10/18/20 15:53 10/18/20 16:00 10/18/20 18:00 Temperature 36.5 C Pulse Rate 97 89 90 Respiratory Rate 17 15 Blood Pressure 134/92 H Pulse Oximetry 98 97 10/18/20 20:00 10/18/20 20:15 10/18/20 22:30 Temperature Pulse Rate 90 96 87 Respiratory Rate 20 20 Blood Pressure 134/76 132/93 H Pulse Oximetry 98 99 10/19/20 00:00 10/19/20 00:45 10/19/20 02:00 Temperature Pulse Rate 93 84 Respiratory Rate 19 Blood Pressure 141/101 H Pulse Oximetry 97 10/19/20 02:15 10/19/20 04:00 10/19/20 04:30 Temperature 36.6 C Pulse Rate 84 73 86 Respiratory Rate 16 15 Blood Pressure 137/98 H 141/105 H Pulse Oximetry 98 98 10/19/20 05:15 10/19/20 06:00 10/19/20 08:00 Temperature 36.6 C Pulse Rate 82 92 Respiratory Rate 16 17 Blood Pressure 129/89 145/107 H 159/112 H Pulse Oximetry 98 98 10/19/20 10:00 10/19/20 12:00 Temperature 36.7 C Pulse Rate 98 88 Respiratory Rate 18 14 Blood Pressure 162/96 H 156/87 H Pulse Oximetry 99 98 Intake/Output Intake/Output: Intake & Output 10/16/20 10/17/20 10/18/20 10/19/20 22:59 22:59 23:59 23:59 Intake Total 1950 Output Total 1950 Balance 0 Meds/Results Medications: Active Medications G
--- NOTE | 2020-10-19 16:30 | PC.NURSE ---
This patient, Morris Peña, was transferred to [[id number]] on 10/19/20 at 1630. Personal belongings sent with patient. Report given to [JOYA RIVERA]. Appropriate documentation sent with patient.
--- NOTE | 2020-10-19 16:51 | PM.CNCAR ---
Assessment and Plan Assessment and plan (1) Hypertensive urgency: Code(s): I16.0 - Hypertensive urgency Status: Acute Assessment and Plan: symptomatic uncontrolled hypertension presentation with severe headache, nausea, vomiting resolved with BP control. ECHO revealed moderate LVH, Normal LV size, with preserved LV systolic function without significant valve pathology. these findings are more likely consistent with longer standing uncontrolled hypertension, however, cannot entirely exclude infiltrative process. MRI with findings also consistent with uncontrolled hypertension and this otherwise young healthy gentleman. Workup for secondary causes of hypertension under way including renal artery stenosis, hyperaldosteronism, and or pheochromocytoma. Patient is not reported strong family history of hypertension. It is not clear is the presence of a pulmonary embolism as well as findings suggestive of pneumonia all occurring simultaneously without corroborating symptoms. Discussed importance of medical therapy, healthy lifestyle, consistent follow-up and management moving forward. BP currently improved although remains elevated on amlodipine, lisinopril, and hydrochlorothiazide. Discussed spironolactone as additional option given side effect profile will wait for current workup prior to initiation. Discussed likelihood he had longer standing uncontrolled hypertension previously undiagnosed as the most likely explanation 1st presentation yet secondary causes should be excluded. Further recommendations to follow based on patient's response to therapy and results from secondary hypertension workup. No indication for an ischemic evaluation at this time. Continue telemetry until BP further stabilized. (2) Pulmonary emboli: Qualifiers: Pulmonary embolism type: single subsegmental (without acute cor pulmonale) Qualified Code(s): I26.93 - Single subsegmental pulmonary embolism without acute cor pulmonale Code(s): I26.99 - Other pulmonary embolism without acute cor pulmonale Status: Acute Assessment and Plan: Negative lower extremity venous Dopplers. No prior history of suggestion of hypercoagulable state. 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 Transition to oral systemic anticoagulation per hospitalist service. Initiate appropriate dose Eliquis for pulmonary embolism 10mg BID for 7 days then 5mg BID thereafter. (3) Pneumonia: Qualifiers: Laterality: unspecified laterality Lung location: upper lobe of lung Pneumonia type: due to unspecified organism Qualified Code(s): J18.9 - Pneumonia, unspecified organism Code(s): J18.9 - Pneumonia, unspecified organism Status: Acute Assessment and Plan: no signs or symptoms suggestive of pneumonia although noted incidentally on CT angiogram. Defer to primary service for management. (4) Elevated troponin: Code(s): R77.8 - Other specified abnormalities of plasma proteins Status: Acute Assessment and Plan: Type 2 infarct, not acute coronary syndrome secondary to hypertensive urgency at presentation. History of Present Illness History of Present Illness Consult date/time: Date of service: 10/19/20 16:51 Cardiology consultation at the request of Dr. Sharif for our opinion regarding uncontrolled hypertension. Requesting physician: Sam Sharif MD Consult reason: hypertension Reason For Visit: pulmonary embolus, pneumonia Narrative: Patient is a very pleasant 25-year-old previously healthy male who presented to the hospital on October 17 with rather sudden onset of severe headache, nausea vomiting, shortness of breath and abdominal pain found to be in hypertensive urgency with systolic blood pressure greater than 220 mm Hg. Patient denies any prior known history of hypertens
[2020-10-19] MEDS: ACETAMINOPHEN 325 MG TABLET 650 MG PO (17:53)
[2020-10-19] MEDS: ONDANSETRON INJ 4 MG/2 ML VIAL IV PUSH (18:46)
[2020-10-19] MEDS: AZITHROMYCIN 250 MG TABLET 500 MG PO (21:07)
[2020-10-20] VITALS: PULSE 83
[2020-10-20 04:00] VITALS: PULSE 76
[2020-10-20 04:17] VITALS: BP 138/96; PULSE 96; RESP 16; TEMP 36.2; O2SAT 100
[2020-10-20 05:51] LABS: Basophils Absolute Auto 0.1 K/mm3 (0.0-0.1); Basophils Percent Auto 0.7 % (0.2-1.2); Eosinophils Absolute Auto 0.2 K/mm3 (0-0.3); Hematocrit 42.4 % (42.0-52.0); Hemoglobin 14.3 g/dL (14.0-18.0); Immature Granulocyte Absolute 0.03 K/mm3 (0.00-0.031); Immature Granulocyte Percent A 0.4 % (0-0.5); Lymphocytes Percent Auto 38.3 % (18.3-44.2); Mean Corpuscular HGB Conc 33.7 g/dl (32-36); Mean Corpuscular Hemoglobin 26.4 pg (26-34); Mean Corpuscular Volume 78.4 fl (80-100); Mean Platelet Volume 10.8 fl (7.4-10.4); Monocytes Absolute Auto 0.7 K/mm3 (0.1-0.6); Monocytes Percent Auto 8.7 % (2.6-8.5); Neutrophils Absolute Auto 3.7 K/mm3 (1.3-6.7); Neutrophils Percent Auto 48.9 % (45.5-73.1); Platelet Count Result 252 k/mm3 (150-375); Red Blood Count 5.41 M/mm3 (4.6-6.20); Red Cell Distribution Width 14.2 % (11.5-14.5); White Blood Count 7.6 K/mm3 (4.5-10.0)
[2020-10-20 06:14] LABS: Anion Gap 6 mmol/L (8-16); Blood Urea Nitrogen 18 mg/dL (9-20); Calcium 9.3 mg/dL (8.4-10.2); Carbon Dioxide 29 mmol/L (22-30); Chloride 103 mmol/L (98-107); Estimated CRCL calculation 72 ml/min; Estimated Glomerular Filt Rate > 60; Glucose 90 mg/dL (75-110); Potassium 3.6 mmol/L (3.4-5.0); Sodium 138 mmol/L (137-145)
[2020-10-20 08:00] VITALS: PULSE 86
[2020-10-20] MEDS: hydroCHLOROthiazide 25 MG TABLET PO (08:41)
[2020-10-20] MEDS: ENOXAPARIN 100 MG/ML SYRINGE SUB-Q (08:42)
[2020-10-20] MEDS: amLODIPine BESYLATE 5 MG TABLET 10 MG PO (08:42)
[2020-10-20] MEDS: lisinopriL 20 MG TABLET PO (08:42)
[2020-10-20 12:00] VITALS: PULSE 94
--- NOTE | 2020-10-20 13:26 | PM.DS ---
DS: Admitting Diagnosis Admitting Diagnosis Admitting Diagnosis: Nausea and vomiting DS: Discharge Diagnosis Discharge Diagnosis (1) Uncontrolled hypertension: Code(s): I10 - Essential (primary) hypertension Status: Acute (2) Pulmonary emboli: Qualifiers: Pulmonary embolism type: single subsegmental (without acute cor pulmonale) Qualified Code(s): I26.93 - Single subsegmental pulmonary embolism without acute cor pulmonale Code(s): I26.99 - Other pulmonary embolism without acute cor pulmonale Status: Acute (3) Pneumonia: Qualifiers: Laterality: unspecified laterality Lung location: upper lobe of lung Pneumonia type: due to unspecified organism Qualified Code(s): J18.9 - Pneumonia, unspecified organism Code(s): J18.9 - Pneumonia, unspecified organism Status: Acute (4) Abdominal pain: Qualifiers: Abdominal location: generalized Qualified Code(s): R10.84 - Generalized abdominal pain Code(s): R10.9 - Unspecified abdominal pain Status: Acute (5) Nausea & vomiting: Qualifiers: Vomiting Intractability: non-intractable Vomiting type: unspecified Qualified Code(s): R11.2 - Nausea with vomiting, unspecified Code(s): R11.2 - Nausea with vomiting, unspecified Status: Acute (6) Abnormal CT of brain: Code(s): R90.89 - Other abnormal findings on diagnostic imaging of central nervous system Status: Acute DS: Summary Hospital Course Reason for hospitalization: 25yo male here for nausea and vomiting and found to have HTN urgency, PE and PNA. Please see H&P for details. Hospital Course: Patient was a seen in the emergency on 10/16/20 and noted to have a blood pressure of 207/141. Chest x-ray was clear. Troponin was elevated but flat; was felt this was related to his hypertensive urgency. He did have 3+ protein in the urine. Lower extremity Dopplers were negative. Renal ultrasound was negative for renal artery stenosis. CTA of the chest showed right upper lobe pulmonary embolism and left upper lobe airspace disease possibly pneumonia (very small on review of the imaging). 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 He was having abdominal pain but CT abdomen pelvis showed no specific etiologies. He ultimately had an MRI of his brain headaches which showed mild white matter disease with posterior predominance likely acute hypertensive encephalopathy. Echocardiogram showed EF of 55% with moderate LVH. COVID was negative. He was initially admitted to the medical floor but then transferred to the ICU for a nicardipine drip. Blood pressure improved. He started on oral antihypertensive medications. Was started on Lovenox for his PE. He was transitioned to Eliquis. He was treated with Rocephin and azithromycin for his possible pneumonia and completed 5 days. Blood Cultures remained negative. His Cr was 1.4 on admission but improved to 1.3 before climbing to 1.6 today. [place] related to the autodysregulation related to his HTN and now lower BP but also consider contrast induced and/or from medications. BP still elevated at times but may be too well controlled. He was started on HCTZ, Lisinopril and Norvasc. Plan to stop HCTZ at discharge and patient will need repeat renal function panel as outpatient. He will also need followup on the anterior mediastinal soft tissue findings. Discharge instructions discussed with him in detail. Status at Discharge Cognitive/behavioral status at discharge: stable Time Spent with Patient Time attestation: Total time spent providing and/or coordinating discharge services: 40 minutes Time spent: Greater than 30 minutes Exam Narrative: Exam Narrative: AF 96.3 151/101 98 16 100% ra Gen - NARD Chest - CTA bilaterally, nml RR CV - RRR S1/S2 Abd - Soft, NT/ND, Positive BS Ext - No pedal edema Neuro - Alert and oriente
[2020-10-20 14:01] VITALS: BP 151/101; PULSE 98; RESP 16; TEMP 35.7; O2SAT 100
[2020-10-25 14:29] LABS: PRA 5.43 ng/mL/h (0.25-5.82)
[2020-11-11 09:12] LABS: Catecholamines, Total 835
--- NOTE | 2020-11-12 13:27 | PC.NURSE ---
catechol is 835. Dr. Foley aware.
--- NOTE | 2020-11-20 10:51 | PC.NURSE ---
Attempted to call patient. No answer.
--- NOTE | 2020-11-24 11:12 | PC.NURSE ---
Attempted to call patient. No answer. No vm available.
== END 2020-10-20 16:20 | disposition home or self-care (01) | DRG 199 ==
LOC: ANHED 10-17 01:19 → ANHIMU 10-17 01:30 → ANHICU 10-18 01:04 → ANH3MED 10-19 16:33
PROVIDERS: Family Medicine; Internal Medicine; Internal Medicine Critical Care Medicine; Admitting Provider Family Medicine; Emergency Provider Emergency Medicine; Visit Provider Internal Medicine
DX: I16.0 Hypertensive urgency (principal); I10 Essential (primary) hypertension; I26.93 Single subsegmental thrombotic pulmonary embolism without acute cor pulmonale; J18.9 Pneumonia, unspecified organism; Z20.822 Contact with and (suspected) exposure to COVID-19; R10.84 Generalized abdominal pain; R77.8 Other specified abnormalities of plasma proteins; R90.89 Other abnormal findings on diagnostic imaging of central nervous system; Z28.21 Immunization not carried out because of patient refusal
CPT/HCPCS: 36415; 70450; 70553; 71045; 71275; 74177; 80048; 80053; 81001; 82088; 82384; 83690; 83735; 84145; 84244; 84484; 85025; 85027; 87040; 93005; 93306; 93970; 93976; 96361; 96365; 96366; 96368; 96372; 96374; 96375; 96376; 99285; A9270; A9577; C9803; G0378; G0379; J0360; J0456; J0696; J0780; J1200; J1650; J2270; J2405; J7030; Q9967; U0003; U0005